=== PATIENT | female | born 1990 | race Two or more races ===

== ENCOUNTER 2019-09-20 19:23 | Emergency (ER) | payer SELFPAY ==
[~2019-09-20] VITALS: Ht 160 cm; Wt 50.0 kg
[2019-09-20] MEDS ORDERED: LORAZEPAM 2MG/ML CPJ IM STA (19:36)
[2019-09-20] MEDS ORDERED: HALOPERIDOL LACTATE 5MG/ML VIAL IM STA (19:36)
[2019-09-20 20:23] LABS: BASOPHILS % 1.2 % (0.0-2.0); EOSINOPHILS % 0.9 % (0.0-5.0); HEMATOCRIT. 42.6 % (36.0-48.0); HEMOGLOBIN. 13.9 g/dL (12.0-16.0); LYMPHOCYTES % 25.8 % (20.0-50.0); MEAN CORPUSCULAR HEMOGLOBIN 27.7 pg (28.0-32.0); MEAN CORPUSCULAR VOLUME 85.2 fL (81.0-99.0); MONOCYTES % 8.1 % (2.0-8.0); RED CELL DISTRIBUTION WIDTH 13.4 % (11.6-14.6)
[2019-09-20 20:25] LABS: CHLORIDE 112 mEq/L (98-107)
[2019-09-20 20:29] LABS: ETHANOL BLOOD < 10 mg/dL
[2019-09-20 20:41] LABS: CLARITY URINE CLOUDY (CLEAR); COLOR URINE YELLOW (YELLOW); KETONES URINE NEGATIVE (NEGATIVE); LEUKOCYTE ESTERASE URINE 2+ (NEGATIVE); NITRITE URINE POSITIVE (NEGATIVE); OCCULT BLOOD URINE 2+ (NEGATIVE); PROTEIN URINE NEGATIVE (NEGATIVE); SPECIFIC GRAVITY URINE 1.021 (1.005-1.030); UROBILINOGEN URINE 0.2 E.U./dL (0.2-1.0)
[2019-09-20 20:58] LABS: *AMPHETAMINES SCREEN URINE PRESUMTIVE POSITIVE (NEGATIVE); *BARBITURATES SCREEN URINE NEGATIVE (NEGATIVE); *BENZODIAZEPINES SCREEN URINE PRESUMTIVE POSITIVE (NEGATIVE); *COCAINE SCREEN URINE NEGATIVE (NEGATIVE); CANNABINOID URINE SCREEN PRESUMTIVE POSITIVE (NEGATIVE); METHADONE URINE SCREEN NEGATIVE (NEGATIVE); OPIATES URINE SCREEN NEGATIVE (NEGATIVE); PHENCYCLIDINE URINE SCREEN NEGATIVE (NEGATIVE)
[2019-09-20 20:58] LABS: HCG SCREEN NEGATIVE
[2019-09-20] MEDS ORDERED: CEFTRIAXONE 1 G PREMIX 50 ML IV ONE (21:00)
[2019-09-20] MEDS ORDERED: POTASSIUM CHLORIDE 20MEQ TABLET SR PO ONE (21:00)
[2019-09-21 08:40] VITALS: BP 118/71
== END 2019-09-21 09:08 | disposition home or self-care (01) ==
LOC: ER 19:23
DX: T43.621A Poisoning by amphetamines, accidental (unintentional), initial encounter (principal); F15.188 Other stimulant abuse with other stimulant-induced disorder; T40.7X1A Poisoning by cannabis (derivatives), accidental (unintentional), initial encounter; F12.188 Cannabis abuse with other cannabis-induced disorder; T40.991A Poisoning by other psychodysleptics [hallucinogens], accidental (unintentional), initial encounter; F16.188 Hallucinogen abuse with other hallucinogen-induced disorder; R45.1 Restlessness and agitation; Y92.410 Unspecified street and highway as the place of occurrence of the external cause
CPT/HCPCS: 36415; 80053; 80305; 80307; 80320; 80329; 81003; 84703; 85025; 93005; 96365; 96372; 99284; J0696; J1630; J2060; Z7610; G0480